=== PATIENT | male | born 1990 | race Caucasian/White ===

== ENCOUNTER 2017-10-31 17:38 | Emergency (ER) | payer SELFPAY ==
[~2017-10-31] VITALS: Ht 172.7 cm; Wt 76.2 kg
[2017-10-31 17:43] VITALS: BP 138/80
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
--- NOTE | 2017-10-31 18:03 | NUR ---
Dr. Keith evaluating patient at bedside.
[2017-10-31 18:30] VITALS: BP 138/80
--- NOTE | 2017-10-31 18:49 | NUR ---
PT. LEFT W/O DISCHARGE INSTRUCTIONS , DR. BABB MADE AWARE.
== END 2017-10-31 18:49 | disposition home or self-care (01) ==
LOC: MED 17:38
DX: S20.219A Contusion of unspecified front wall of thorax, initial encounter (principal); Y04.0XXA Assault by unarmed brawl or fight, initial encounter; Y93.89 Activity, other specified; Y92.89 Other specified places as the place of occurrence of the external cause; Y99.8 Other external cause status
CPT/HCPCS: 71045; 99283